=== PATIENT | female | born 2000 | race Caucasian/White ===

== ENCOUNTER 2021-04-10 16:43 | Emergency (ER) | payer SELFPAY ==
[2021-04-10 16:59] VITALS: BP 140/78; PULSE 82; O2SAT 100
--- NOTE | 2021-04-10 17:00 | ERPHSYRPT ---
- History of Present Illness Time Seen by Provider: 04/10/21 16:55 Source: patient Exam Limitations: no limitations Physician History: 20-year-old female came to the emergency room with the pain in the right wrist with new cyst appearing on the dorsum area of the wrist. Occurred: days ago Severity of Pain-Max: mild Severity of Pain-Current: mild Extremities Pain Location: wrist: right (cyst on dorsum) Modifying Factors: Improves With: nothing Associated Symptoms: none Body Map: 1 - cyst Allergies/Adverse Reactions: No Known Drug Allergies Allergy (Unverified 04/10/21 16:51) Home Medications: No Reportable Medications [No Reported Medications] 04/10/21 [History] - Review of Systems Constitutional: No Symptoms Eyes: No Symptoms Ears, Nose, & Throat: No Symptoms Respiratory: No Symptoms Cardiac: No Symptoms Abdominal/Gastrointestinal: No Symptoms Genitourinary Symptoms: No Symptoms Musculoskeletal: Other (cyst on wrist) Skin: No Symptoms Neurological: No Symptoms - Physical Exam General Appearance: no apparent distress Eyes, Ears, Nose, Throat Exam: normal ENT inspection Neck Exam: normal inspection Shoulder Exam: normal inspection Elbow/Forearm Exam: normal inspection Wrist Exam: normal inspection, normal ROM, soft tissue tenderness, swelling, No no evidence of injury Hand Exam: normal inspection - Course Nursing assessment & vital signs reviewed: Yes - Progress Progress: unchanged Counseled pt/family regarding: diagnosis, need for follow-up - Departure Departure Disposition: Home Clinical Impression: Ganglion cyst of dorsum of right wrist Condition: Stable Critical Care Time: No Referrals: DOCTOR,NO FAMILY [Primary Care Provider] - Follow up/PCP as directed Instructions: Ganglion Cyst (DC) Additional Instructions: Discharge/Care Plan NATHANIEL PEPPER was seen on 04/10/21 in the Emergency Room. The patient was counseled regarding Diagnosis,Lab results, Imaging studies, need for follow up and when to return to the Emergency Room. Prescriptions given: Discharge Note I have spoken with the patient and/or caregivers. I have explained the patient's condition, diagnosis and treatment plan based on the information available to me at this time. I have answered the patient's and/or caregiver's questions and addressed any concerns. The patient and/or caregivers have as good understanding of the patient's diagnosis, condition and treatment plan as can be expected at this point. The vital signs have been stable. The patient's condition is stable and appropriate for discharge from the emergency department. The patient will pursue further outpatient evaluation with the primary care physician or other designated or consulting physician as outlined in the discharge instructions. The patient and/or caregivers are agreeable to this plan of care and follow-up instructions have been explained in detail. The patient and/or caregivers have received these instruction. The patient/and or caregivers are aware that any significant change in condition or worsening of symptoms should prompt an immediate return to this or the closest emergency department or call 911. NATHANIEL PEPPER was seen on 04/10/21 n the Emergency Room. At that time you were treated for an emergent condition, during your visit Laboratory, Radiology and/or other procedures may have been ordered. It is very important t hat you follow-up with your Primary Care Physician NO FAMILY DOCTOR within the next 24-48 hours to review your Emergency Room visit and the final results of testing that was ordered. Some test results such as Urine Cultures, Blood Cultures, and other cultures if ordered will not be finalized for 24-48 hours. If you do not have a Primary Care Provider please call the medical records department at [phone] ext [phone] to obtain a copy of your results or you may sign into our patient portal to obtain these results by visiting us @ [email or web address] and completing the following steps: 1. Click on the Patient Portal link 2. Click the Patient Self Enrollment Link to complete the enrollment form and entering your 3. Once the enrollment form is completed you will receive an email with a temporary ID and password at the email address you provided. 4. Next choose a user name and password. Your user name must be at least 4 characters long and your password must be at least 4 characters long. 5. Choose a security question from the list and provide your answer to the question. If you already have signed into the Health Portal you may access your Health Care Information 05/09 by the following steps: 1. Login to our website @ [email or web address] 2. Enter your original user name and password. FAQS The [facility] Health Portal is an online tool that contains your Lab Results, Radiology Reports, Visit History, Discharge Instructions and Health Summary Lab and Radiology Results will not be available for 72 hours on the portal. The Portal is a secure site, passwords are encryted and URLs are re-written so they cannot be copied and pasted. You and authorized family members are the only ones who can access your Portal. Also there is a timeout feature that protects your information if you leave the Portal page open. If you have technical difficulty please use the Contact Us link on the page this will allow you to submit any questions you have regarding the Portal or you may contact the Medical Record Department at [phone] ext [phone].
== END 2021-04-10 17:06 | disposition home or self-care (01) ==
LOC: ED 16:43
DX: M67.431 Ganglion, right wrist (principal); M25.531 Pain in right wrist
CPT/HCPCS: 99283

== ENCOUNTER 2021-04-13 13:58 | Emergency (ER) | payer SELFPAY ==
[2021-04-13 14:10] VITALS: BP 138/65; PULSE 79; O2SAT 100
--- NOTE | 2021-04-13 14:14 | ERPHSYRPT ---
- History of Present Illness Time Seen by Provider: 04/13/21 14:20 Source: patient Exam Limitations: no limitations Patient Subjective Stated Complaint: Right wrist pain Triage Nursing Assessment: Patient ambulated back to ED and transferred self to bed. Patient A+O X3. Patient's skin pink, warm and dry. Patient complains of wrist pain 5/10. Patient was seen in ER on Monday and dx with ganglion cyst. Patient states she isn't better. Physician History: Patient is a 20-year-old female presents to our ED for the second visit for treatment of a ganglion cyst. Patient has a ganglion cyst is irritating. Patient referred to children and has been experiencing considerable discomfort at her right wrist. No trauma. No fever. Pain described as an ache that is localized to the dorsum of the right wrist. Pain improved with rest. Symptoms are mild to moderate in intensity. Repetitive movement worsens symptoms. Patient otherwise asymptomatic. Patient voices no other complaints or concerns at this time. Timing/Duration: other (Pain for 1 year) Modifying Factors: Improves With: nothing Associated Symptoms: denies symptoms Allergies/Adverse Reactions: No Known Drug Allergies Allergy (Verified 04/13/21 14:03) Home Medications: No Reportable Medications [No Reported Medications] 04/10/21 [History] Hx Influenza Vaccination/Date Given: No Hx Pneumococcal Vaccination/Date Given: No Immunizations Up to Date: Yes Travel Risk - International Travel Have you traveled outside of the country in past 3 weeks: No - Coronavirus Screening Are you exhibiting any of the following symptoms?: No Close contact with a COVID-19 positive Pt in past 14-21 Days: No - Vaccine Status Have you recieved a Covid-19 vaccination: No - Review of Systems Constitutional: No Symptoms, No Fever, No Chills Eyes: No Symptoms Ears, Nose, & Throat: No Symptoms Respiratory: No Symptoms, No Cough, No Dyspnea Cardiac: No Symptoms, No Chest Pain, No Edema, No Syncope Abdominal/Gastrointestinal: No Symptoms, No Abdominal Pain, No Nausea, No Vomiting, No Diarrhea Genitourinary Symptoms: No Symptoms, No Dysuria Musculoskeletal: No Symptoms, No Back Pain, No Neck Pain Skin: No Symptoms, No Rash Neurological: No Symptoms, No Dizziness, No Focal Weakness, No Sensory Changes Psychological: No Symptoms Endocrine: No Symptoms Hematologic/Lymphatic: No Symptoms Immunological/Allergic: No Symptoms All Other Systems: Reviewed and Negative - Past Medical History Pertinent Past Medical History: No Neurological History: No Pertinent History ENT History: No Pertinent History Cardiac History: No Pertinent History Respiratory History: No Pertinent History Endocrine Medical History: No Pertinent History Musculoskeletal History: No Pertinent History GI Medical History: No Pertinent History History: No Pertinent History Psycho-Social History: No Pertinent History Female Reproductive Disorders: No Pertinent History - Past Surgical History Past Surgical History: No Neuro Surgical History: No Pertinent History Cardiac: No Pertinent History Respiratory: No Pertinent History Gastrointestinal: No Pertinent History Genitourinary: No Pertinent History Musculoskeletal: No Pertinent History Female Surgical History: No Pertinent History - Social History Smoking Status: Never smoker Exposure to second hand smoke: No Drug Use: none Patient Lives Alone: No - Female History Hx Now: No - Nursing Vital Signs Nursing Vital Signs: Initial Vital Signs Temperature 99.4 F 04/13/21 14:04 Pulse Rate 79 04/13/21 14:04 Respiratory Rate 18 04/13/21 14:04 Blood Pressure 138/65 04/13/21 14:04 O2 Sat by Pulse Oximetry 100 04/13/21 14:04 Pain Scale Pain Intensity 5 - Physical Exam General Appearance: no apparent distress, alert Eye Exam: PERRL/EOMI, eyes nml inspection Ears, Nose, Throat Exam: normal ENT inspection, TMs normal, pharynx normal, moist mucous membranes Neck Exam: normal inspection, non-tender, supple, full range of motion Respiratory Exam: normal breath sounds, lungs clear, airway intact, No respiratory distress Cardiovascular Exam: regular rate/rhythm, normal heart sounds, normal peripheral pulses Gastrointestinal/Abdomen Exam: soft, normal bowel sounds, No tenderness, No mass Back Exam: normal inspection, normal range of motion, No CVA tenderness, No vertebral tenderness Extremity Exam: normal inspection, normal range of motion, pelvis stable Neurologic Exam: alert, oriented x 3, cooperative, normal mood/affect, nml cerebellar function, nml station & gait, sensation nml, No motor deficits Skin Exam: normal color, warm, dry, No rash Lymphatic Exam: No adenopathy SpO2 Interpretation: normal SpO2: 100 O2 Delivery: Room Air - Course Nursing assessment & vital signs reviewed: Yes - Radiology Exams Wrist X-ray Interpretation: Teleradiologist Report (No fracture or dislocation. No soft tissue abnormalities. Swelling dorsum of right wrist consistent with known ganglion cyst) Ordered Tests: Active Orders 24 hr Category Date Time Status WRIST (MIN 3 VIEWS) Stat Exams 04/13/21 14:25 Ordered Medication Summary Discontinued Medications Generic Name Dose Route Start Last Admin Trade Name Delma PRN Reason Stop Dose Admin Acetaminophen 975 mg 04/13/21 14:26 Acetaminophen 325 Mg Tablet PO 04/13/21 14:27 STAT ONE - Progress Progress: improved Progress Note: Patient reassessed. Pain improved. Patient currently has a wrist splint which provides support and comfort. Ganglion cyst will need to be addressed by an orthopedist. Patient referred to orthopedic for follow-up. No indication for further work-up at this time. Will discharge home. Patient agrees to follow-up as discussed. She voices no other complaints or concerns at this time. Portions of this note were created with voice recognition technology. There may be grammatical, spelling, punctuation or sound alike errors 04/13/21 14:29 Patient's appointment is with Dr. Puga scheduled for May 06 at 10:30am. 04/13/21 14:32 Counseled pt/family regarding: diagnosis, need for follow-up, rad results - Departure Departure Disposition: Home Clinical Impression: Ganglion cyst right hand Condition: Stable Critical Care Time: No Referrals: DOCTOR,NO FAMILY [Primary Care Provider] - Follow up/PCP as directed SVETLANA PUGA MD [NON-STAFF PHY W/O PRIVILEGES] - Follow up/PCP as directed Additional Instructions: Discharge/Care Plan NATHANIEL PEPPER was seen on 04/13/21 in the Emergency Room. The patient was counseled regarding Diagnosis,Lab results, Imaging studies, need for follow up and when to return to the Emergency Room. Prescriptions given: Discharge Note I have spoken with the patient and/or caregivers. I have explained the patient's condition, diagnosis and treatment plan based on the information available to me at this time. I have answered the patient's and/or caregiver's questions and addressed any concerns. The patient and/or caregivers have as good understanding of the patient's diagnosis, condition and treatment plan as can be expected at this point. The vital signs have been stable. The patient's condition is stable and appropriate for discharge from the emergency department. The patient will pursue further outpatient evaluation with the primary care physician or other designated or consulting physician as outlined in the discharge instructions. The patient and/or caregivers are agreeable to this plan of care and follow-up instructions have been explained in detail. The patient and/or caregivers have received these instruction. The patient/and or caregivers are aware that any significant change in condition or worsening of symptoms should prompt an immediate return to this or the closest emergency department or call 911.
[2021-04-13] MEDS ORDERED: TYLENOL 325 MG PO ONE (14:26)
[2021-04-13] MEDS ORDERED: TYLENOL 325 MG ONE (14:32)
--- NOTE | 2021-04-13 14:44 | XRAY ---
Indication: Pain. Comparison: None 3 view right wrist demonstrates mild posterior soft tissue swelling. No other bony, articular, or soft tissue abnormalities.
== END 2021-04-13 14:44 | disposition home or self-care (01) ==
LOC: ED 13:58
DX: M67.431 Ganglion, right wrist (principal)
CPT/HCPCS: 73110; 99283; A9270-GY

== ENCOUNTER 2022-10-05 21:33 | Emergency (ER) | payer OTHER ==
[2022-10-05 22:09] VITALS: TEMP 98.6
[2022-10-05] MEDS ORDERED: Sodium Chloride 0.9% 1000 ML 1,000 ML IV STA (22:15)
[2022-10-05] MEDS ORDERED: Sodium Chloride 0.9% 1000 ML 1,000 ML ONE (22:39)
[2022-10-05 22:43] LABS: BASOPHIL % 0.4 % (0.0-0.4); Basophil (Absolute #) 0.05 x10^3/uL (0-0.4); Eosinophil % 0.6 % (0.00-5.0); Eosinophil (Absolute #) 0.07 x10^3/uL (0-0.5); IMMATURE GRAN # 0.06 x10^3u/L (0.00-0.03); IMMATURE GRAN % 0.5 % (0.00-0.4); Lymphocyte (Absolute #) 1.99 x10^3/uL (1.0-4.6); Lymphocytes % 17.7 % (24.0-44.0); Mean Cell Volume 92.4 fL (78-100); Mean Corpuscular Hemoglobin 29.9 pg (26-32); Mean Corpuscular Hgb Concent. 32.4 g/dL (32-36); Mean Platelet Volume 10.2 fL (7.5-11.0); Monocyte (Absolute #) 1.06 x10^3/uL (0.0-1.3); Monocytes % 9.4 % (0.0-12.0); Neutrophil % 71.4 % (36.0-66.0); Platelet Count 321 x10^3/uL (150-450); Red Blood Count 3.68 x10^6/uL (4.1-5.4); Red Cell Distribution Width 12.7 % (11.5-14.0); White Blood Count 11.2 x10^3/uL (4.0-10.5)
[2022-10-05 23:00] LABS: HCG SERUM TEST NEGATIVE (NEGATIVE)
[2022-10-05 23:01] LABS: ALKALINE PHOSPHATASE 51 U/L (38-126); BLOOD UREA NITROGEN 9 mg/dL (7-17); CHLORIDE 105 mmol/L (98-107); Calcium 9.1 mg/dL (8.4-10.2); Carbon Dioxide 22 mmol/L (22-30); Creatinine 1 0.59 mg/dL (0.52-1.04); EST GLOMERULAR FILTRATION RATE > 60.0 ML/MIN; Glucose 99 mg/dL (74-106); SGOT/AST 16 U/L (14-36); SGPT/ALT 15 U/L (0-35); SODIUM 140 mmol/L (137-145); Total Protein 7.5 g/dL (6.3-8.2)
--- NOTE | 2022-10-05 23:07 | ERPHSYRPT ---
- History of Present Illness Time Seen by Provider: 10/05/22 22:10 Historian: patient Exam Limitations: no limitations Patient Subjective Stated Complaint: pt states " my back has been hurting since monday and tonight is has gotten worse Triage Nursing Assessment: pt ambulatory to bed by self, pt alert and oriented x3, skin pwd, pt c/o R sided flank pain since monday, tonight the pain has gotten worse, pt states "I know I have a UTI.", pt denies burning upon urination- only symptom is dysuria. last meal was 1800, last bm was today, last urination was about 45 prior to arrival. Physician History: Patient is a 22-year-old white female who says she is certain she has a urinary tract infection. She denies any dysuria but has had some difficulty starting her urination. She has right flank pain which is fairly constant she says she has had no fever chills or sweats and it does hurt in her right flank when she moves. Allergies/Adverse Reactions: No Known Drug Allergies Allergy (Verified 10/05/22 22:03) Hx Tetanus, Diphtheria Vaccination/Date Given: No Hx Influenza Vaccination/Date Given: No Hx Pneumococcal Vaccination/Date Given: No Immunizations Up to Date: Yes Travel Risk - International Travel Have you traveled outside of the country in past 3 weeks: No - Coronavirus Screening Are you exhibiting any of the following symptoms?: No Close contact with a COVID-19 positive Pt in past 14-21 Days: No - Vaccine Status Have you recieved a Covid-19 vaccination: No - Review of Systems Constitutional: No Fever, No Chills Eyes: No Symptoms Ears, Nose, & Throat: No Symptoms Respiratory: No Cough, No Dyspnea Cardiac: No Chest Pain, No Edema, No Syncope Abdominal/Gastrointestinal: No Abdominal Pain, No Nausea, No Vomiting, No Diarrhea Genitourinary Symptoms: Flank Pain, No Dysuria Musculoskeletal: No Back Pain, No Neck Pain Skin: No Rash Neurological: No Dizziness, No Focal Weakness, No Sensory Changes Psychological: No Symptoms Endocrine: No Symptoms All Other Systems: Reviewed and Negative - Past Medical History Pertinent Past Medical History: No Neurological History: No Pertinent History ENT History: No Pertinent History Cardiac History: No Pertinent History Respiratory History: No Pertinent History Endocrine Medical History: No Pertinent History Musculoskeletal History: No Pertinent History GI Medical History: No Pertinent History History: No Pertinent History Psycho-Social History: No Pertinent History Female Reproductive Disorders: No Pertinent History - Past Surgical History Past Surgical History: Yes Neuro Surgical History: No Pertinent History Cardiac: No Pertinent History Respiratory: No Pertinent History Gastrointestinal: No Pertinent History Genitourinary: No Pertinent History Musculoskeletal: Orthopedic Surgery Female Surgical History: No Pertinent History Other Surgical History: R wrist cyst removal - Social History Smoking Status: Never smoker Exposure to second hand smoke: No Drug Use: none Patient Lives Alone: No - Female History Hx Now: No - Nursing Vital Signs Nursing Vital Signs: Initial Vital Signs Temperature 98.6 F 10/05/22 22:03 Pulse Rate 98 H 10/05/22 22:03 Respiratory Rate 18 10/05/22 22:03 Blood Pressure 150/95 10/05/22 22:03 O2 Sat by Pulse Oximetry 100 10/05/22 22:03 Pain Scale Pain Intensity 8 - Physical Exam General Appearance: no apparent distress, alert Eye Exam: PERRL/EOMI, eyes nml inspection Ears, Nose, Throat Exam: normal ENT inspection, pharynx normal, moist mucous membranes Neck Exam: normal inspection, non-tender, supple, full range of motion Respiratory Exam: normal breath sounds, lungs clear, No respiratory distress Cardiovascular Exam: regular rate/rhythm, normal heart sounds Gastrointestinal/Abdomen Exam: soft, No tenderness, No mass Back Exam: normal inspection, normal range of motion, CVA tenderness (Right), No vertebral tenderness Extremity Exam: normal inspection, normal range of motion, pelvis stable Neurologic Exam: alert, oriented x 3, cooperative, normal mood/affect, nml cerebellar function, sensation nml, No motor deficits Skin Exam: normal color, warm, dry SpO2: 100 - Course Nursing assessment & vital signs reviewed: Yes - CT Exams Abdomen/Pelvis CT Interpretation: Other (CT indicated a 2 mm stone in the middle calyces of the right kidney. I reviewed the findings.) Ordered Tests: Active Orders 24 hr Category Date Time Status IV Insertion STAT Care 10/05/22 22:15 Active ABDOMEN AND PELVIS W/0 CONTRAS [CT] Stat Exams 10/05/22 23:06 Completed CBC W DIFF Stat Lab 10/05/22 22:35 Completed CMP Stat Lab 10/05/22 22:35 Completed HCG QUALITATIVE, SERUM Stat Lab 10/05/22 22:35 Completed Lactic Acid Stat Lab 10/05/22 22:15 Completed Lactic Acid Stat Lab 10/06/22 01:02 Received UA W/RFX UR CULTURE Stat Lab 10/06/22 00:22 Received Urine Triage Profile Stat Lab 10/06/22 00:22 Received Medication Summary Discontinued Medications Generic Name Dose Route Start Last Admin Trade Name Delma PRN Reason Stop Dose Admin Sodium Chloride 1,000 mls @ 999 mls/hr 10/05/22 22:15 10/05/22 22:40 Sodium Chloride 0.9% 1000 Ml IV 10/05/22 23:15 999 mls/hr .Q1H1M STA Administration Sodium Chloride Confirm 10/05/22 22:39 Sodium Chloride 0.9% 1000 Ml Administered 10/05/22 22:40 Dose 1,000 mls @ ud .ROUTE .STK-MED ONE Lab/Rad Data: Laboratory Result Diagrams 10/05/22 22:35 10/05/22 22:35 Laboratory Results 10/06/22 10/05/22 10/05/22 Range/Units 00:22 22:35 22:35 WBC (4.0-10.5) x10^3/uL RBC (4.1-5.4) x10^6/uL Hgb (12.0-16.0) g/dL Hct (35-47) % MCV (78-100) fL MCH (26-32) pg MCHC (32-36) g/dL RDW (11.5-14.0) % Plt Count (150-450) x10^3/uL MPV (7.5-11.0) fL Gran % (36.0-66.0) % Immature Gran % (Auto) (0.00-0.4) % Nucleat RBC Rel Count (0.00-0.1) % Eos # (Auto) (0-0.5) x10^3/uL Immature Gran # (Auto) (0.00-0.03) x10^3u/L Absolute Lymphs (auto) (1.0-4.6) x10^3/uL Absolute Monos (auto) (0.0-1.3) x10^3/uL Absolute Nucleated RBC (0.00-0.01) x10^3u/L Lymphocytes % (24.0-44.0) % Monocytes % (0.0-12.0) % Eosinophils % (0.00-5.0) % Basophils % (0.0-0.4) % Absolute Granulocytes (1.4-6.9) x10^3/uL Basophils # (0-0.4) x10^3/uL Sodium 140 (137-145) mmol/L Potassium 4.0 (3.5-5.1) mmol/L Chloride 105 (98-107) mmol/L Carbon Dioxide 22 (22-30) mmol/L Anion Gap 18.0 H (5-15) MEQ/L BUN 9 (7-17) mg/dL Creatinine 0.59 (0.52-1.04) mg/dL Estimated GFR > 60.0 ML/MIN Glucose 99 (74-106) mg/dL Lactic Acid (0.4-2.0) Calcium 9.1 (8.4-10.2) mg/dL Total Bilirubin 0.40 (0.2-1.3) mg/dL AST 16 (14-36) U/L ALT 15 (0-35) U/L Alkaline Phosphatase 51 (38-126) U/L Serum Total Protein 7.5 (6.3-8.2) g/dL Albumin 5.0 (3.5-5.0) g/dL Serum HCG, Qual NEGATIVE (NEGATIVE) Urine Opiates Level NEGATIVE (NEGATIVE) Ur Methadone NEGATIVE (NEGATIVE) Urine Barbiturates NEGATIVE (NEGATIVE) Ur Phencyclidine (PCP) NEGATIVE (NEGATIVE) Urine Amphetamine NEGATIVE (NEGATIVE) U Benzodiazepine Level NEGATIVE (NEGATIVE) Urine Cocaine NEGATIVE (NEGATIVE) Urine Marijuana (THC) NEGATIVE (NEGATIVE) 10/05/22 10/05/22 Range/Units 22:35 22:15 WBC 11.2 H (4.0-10.5) x10^3/uL RBC 3.68 L (4.1-5.4) x10^6/uL Hgb 11.0 L (12.0-16.0) g/dL Hct 34.0 L (35-47) % MCV 92.4 (78-100) fL MCH 29.9 (26-32) pg MCHC 32.4 (32-36) g/dL RDW 12.7 (11.5-14.0) % Plt Count 321 (150-450) x10^3/uL MPV 10.2 (7.5-11.0) fL Gran % 71.4 H (36.0-66.0) % Immature Gran % (Auto) 0.5 H (0.00-0.4) % Nucleat RBC Rel Count 0.0 (0.00-0.1) % Eos # (Auto) 0.07 (0-0.5) x10^3/uL Immature Gran # (Auto) 0.06 H (0.00-0.03) x10^3u/L Absolute Lymphs (auto) 1.99 (1.0-4.6) x10^3/uL Absolute Monos (auto) 1.06 (0.0-1.3) x10^3/uL Absolute Nucleated RBC 0.00 (0.00-0.01) x10^3u/L Lymphocytes % 17.7 L (24.0-44.0) % Monocytes % 9.4 (0.0-12.0) % Eosinophils % 0.6 (0.00-5.0) % Basophils % 0.4 (0.0-0.4) % Absolute Granulocytes 8.00 H (1.4-6.9) x10^3/uL Basophils # 0.05 (0-0.4) x10^3/uL Sodium (137-145) mmol/L Potassium (3.5-5.1) mmol/L Chloride (98-107) mmol/L Carbon Dioxide (22-30) mmol/L Anion Gap (5-15) MEQ/L BUN (7-17) mg/dL Creatinine (0.52-1.04) mg/dL Estimated GFR ML/MIN Glucose (74-106) mg/dL Lactic Acid 2.0 (0.4-2.0) Calcium (8.4-10.2) mg/dL Total Bilirubin (0.2-1.3) mg/dL AST (14-36) U/L ALT (0-35) U/L Alkaline Phosphatase (38-126) U/L Serum Total Protein (6.3-8.2) g/dL Albumin (3.5-5.0) g/dL Serum HCG, Qual (NEGATIVE) Urine Opiates Level (NEGATIVE) Ur Methadone (NEGATIVE) Urine Barbiturates (NEGATIVE) Ur Phencyclidine (PCP) (NEGATIVE) Urine Amphetamine (NEGATIVE) U Benzodiazepine Level (NEGATIVE) Urine Cocaine (NEGATIVE) Urine Marijuana (THC) (NEGATIVE) - Progress Progress: unchanged Medical Desision Making - Diagnostic Testing Diagnostic test were ordered, analyzed, and reviewed by me: Yes Radiological Interpretation: Reviewed by me - Departure Departure Disposition: Home Clinical Impression: Urinary tract infection Condition: Stable Critical Care Time: No Referrals: DOCTOR,NO FAMILY [Primary Care Provider] - Follow up/PCP as directed Instructions: Urinary Tract Infection, Adult (DC) Prescriptions: Cephalexin Mh 500 mg [Keflex 500 mg] 500 mg PO QID #40 cap
[2022-10-05 23:44] VITALS: RESP 16
--- NOTE | 2022-10-05 23:56 | XRAY ---
CLINICAL HISTORY:pain r flank COMPARISON:None. TECHNIQUE:CT scan of the abdomen and pelvis was performed without IV contrast. Coronal and sagittal reconstructive images were also obtained. FINDINGS: Abdomen: The liver is of average size. No focal or diffuse parenchymal abnormality. The portal vein, intrahepatic biliary radicals, and the bile ducts are normal. The spleen, pancreas, and adrenal glands are unremarkable. The kidneys are normal in size and shape. A 2 mm calculus is seen in the middle calyx of the right kidney, no evidence of hydronephrosis. No calculi or hydronephrosis on left side. The gallbladder is partially distended. There is no evidence of wall thickening/ pericholecystic collection. The ascending colon, the transverse colon, the descending colon and visualized small bowel loops are unremarkable. There is no evidence of significant enlargement of the mesenteric or retroperitoneal lymph nodes. Pelvis: The urinary bladder is unremarkable. Uncomplicated sigmoid diverticulosis changes. The uterus and adnexa appear unremarkable. No evidence of pelvic lymphadenopathy. No definite bony abnormalities could be depicted. IMPRESSION: 1. A small 2 mm non-obstructive calculus in the middle calyx of the right kidney. 2. Uncomplicated sigmoid diverticulosis changes. 3. No significant acute abnormality is detected in the abdomen and pelvis. Electronically Signed by: Dot Katz MD. (10/05/2022 22:55:47 HYDROGEN CELL TENDER)
[2022-10-06 01:02] VITALS: BP 136/74; PULSE 58
[2022-10-06 01:11] VITALS: O2SAT 100
[2022-10-06 01:11] LABS: Amphetamine,Urine NEGATIVE (NEGATIVE); Barbiturate,Urine NEGATIVE (NEGATIVE); Benzodiazepine,Urine NEGATIVE (NEGATIVE); Cocaine,Urine NEGATIVE (NEGATIVE); Methadone,Urine NEGATIVE (NEGATIVE); Opiate,Urine NEGATIVE (NEGATIVE); PCP,Urine NEGATIVE (NEGATIVE); THC,Urine NEGATIVE (NEGATIVE)
[2022-10-06] MEDS ORDERED: ROCEPHIN 1 Gm-D5w 50 ml Bag** 1 G/50 ML IVPB IV STA (01:18)
[2022-10-06] MEDS ORDERED: ROCEPHIN 1 Gm-D5w 50 ml Bag** 1 G/50 ML IVPB IV ONE (01:20)
[2022-10-06 01:44] LABS: Appearance Cloudy (Clear); Bilirubin Negative (Negative); Blood Small (Negative); Glucose, Urine Negative (Negative); Ketones Negative (Negative); Leukocyte Esterase Moderate (Negative); Nitrite Positive (Negative); Ph 7.5 (4.6-8.0); Protein,Urine Dip 30 (Negative); Specific Gravity 1.015 (1.005-1.030)
[2022-10-06 01:45] LABS: ADD URINE CULTURE? YES (NO); Bacteria Few /HPF (None Seen); Epithelial Cells None Seen /HPF (None Seen); WBC 51-100 /HPF (0-5)
== END 2022-10-06 01:46 | disposition home or self-care (01) ==
LOC: ED 21:33
DX: N39.0 Urinary tract infection, site not specified (principal); R10.9 Unspecified abdominal pain; Z28.310 Unvaccinated for COVID-19
CPT/HCPCS: 36000; 36415; 74176; 80053; 80307; 81001; 83605; 84703; 85025; 87077; 87086; 87186; 96365; 99284; J0696